=== PATIENT | female | born 1960 | race Caucasian/White ===

== ENCOUNTER 2017-03-22 07:29 | Emergency (ER) | payer BC, OTHER ==
[~2017-03-22] VITALS: Ht 167.6 cm; Wt 97.0 kg
[~2017-03-22 07:29] MED LIST: ALBU1AER INH; ATEN-100 PO; HYDR7.5T76 PO; LORA0.5T PO; NAPR-576 PO; OMEP20.62 PO; PRAV20 PO
[2017-03-22 07:32] VITALS: BP 186/94; PULSE 73; RESP 16; TEMP 98; O2SAT 97
[2017-03-22] MEDS ORDERED: methylPREDNISolone SOD SUCC 125 MG/2 ML VIAL IV PUSH ONE (07:45)
[2017-03-22] MEDS ORDERED: FAMOTIDINE 20 MG/2 ML VIAL IV PUSH SCH (07:45)
[2017-03-22] MEDS ORDERED: BENA25CA4 PO (07:46)
[2017-03-22] MEDS ORDERED: PRAV20TA2 PO (07:46)
[2017-03-22] MEDS ORDERED: ALBUAER3 INH (07:46)
[2017-03-22] MEDS ORDERED: HYDR7.5T76 PO (07:46)
[2017-03-22] MEDS ORDERED: OMEP20TA PO (07:46)
[2017-03-22] MEDS ORDERED: ASPI81CH7 CHEW (07:46)
[2017-03-22] MEDS ORDERED: ATEN25TA PO (07:46)
[2017-03-22 07:50] VITALS: O2SAT 97
[2017-03-22] MEDS: SODIUM CHLORIDE 0.9% FLUSH 10 ML FLUSH IVF PRN ×2 (07:57→08:38)
[2017-03-22 08:28] VITALS: BP 180/98; PULSE 77; RESP 18; O2SAT 97
[2017-03-22] MEDS ORDERED: diphenhydrAMINE HCL 50 MG/ML VIAL IV PUSH ONE (08:30)
--- NOTE | 2017-03-22 08:42 | PD ---
HPI Chief Complaint: Allergic/Adverse Reaction Time Seen by Provider: 07:38 Travel History International Travel<30 days: No Contact w/Intl Traveler<30days: No Traveled to known affect area: No History of Present Illness HPI Patient 57-year-old female who states that she thinks she was stung by some insect in her face yesterday. She states she was outside playing with her 5- year-old grandson and felt something hit her in her face. She stated over the next several hours she started swelling in her face. She states that she's never had a history of anaphylaxis in the past. She states happened to her one time before where she was bitten multiple times by ancillary her left hand or left hand swelling. She denies any shortness of breath wheezing bowel pain nausea vomiting diarrhea. Denies any fevers. Denies any traumatic injury to her face. She took some Benadryl last night and just made her sleepy. PFSH Past Medical History Asthma: Yes High Cholesterol: Yes GERD: Yes Hypertension: Yes Influenza Vaccination: No ?: Not Menopausal: Yes Past Surgical History Tonsillectomy: Yes Social History Alcohol Use: Yes (OCC) Tobacco Use: No Substance Use: No Allergies-Medications (Allergen,Severity, Reaction): Coded Allergies: Latex (Verified Allergy, Intermediate, Itching, 03/22/17) Reported Meds & Prescriptions Reported Meds & Active Scripts Active Prednisone 20 Mg Tab 60 Mg PO DAILY 5 Days Famotidine 20 Mg Tab 20 Mg PO BID Reported Benadryl Allergy (Diphenhydramine HCl) 25 Mg Cap 1 Cap PO ONCE Proair Hfa 8.5 GM Inh (Albuterol Sulfate) 90 Mcg/Act Aer 2 Puff INH Q6H PRN 108 mcg/actuation Pravastatin 20 Mg Tab 20 Mg PO HS Aspirin Children's (Aspirin) 81 Mg Chew 81 Mg CHEW DAILY Atenolol 25 Mg Tab 25 Mg PO DAILY Omeprazole 20 Mg Tab 20 Mg PO DAILY Hydrocodone-Ibuprofen 7.5-200 Mg Tab 1 Tab PO Q6H PRN Review of Systems Except as stated in HPI: all other systems reviewed are Neg Physical Exam Narrative GENERAL: Well-developed well-nourished distress SKIN: No rash no hives on her person. No lesion to her face. There is some mild soft tissue edema underneath both eyes spreading down into her maxillae. No bruising HEAD: Atraumatic. Normocephalic. EYES: Pupils equal and round. No scleral icterus. No injection or drainage. ENT: No nasal bleeding or discharge. Mucous membranes pink and moist. No oropharyngeal swelling, uvula is midline, no tongue swelling, airway is widely patent. No facial bone tenderness NECK: Trachea midline. No JVD. CARDIOVASCULAR: Regular rate and rhythm. No murmur appreciated. RESPIRATORY: No accessory muscle use. Clear to auscultation. Breath sounds equal bilaterally. No wheezing. Normal work of breathing. Speaks in full sentences. GASTROINTESTINAL: Abdomen soft, non-tender, nondistended. Hepatic and splenic margins not palpable. MUSCULOSKELETAL: No obvious deformities. No clubbing. No cyanosis. No edema. NEUROLOGICAL: Awake and alert. No obvious cranial nerve deficits. Motor grossly within normal limits. Normal speech. PSYCHIATRIC: Appropriate mood and affect; insight and judgment normal. Data Data Last Documented VS Vital Signs Date Time Temp Pulse Resp B/P Pulse Ox O2 Delivery O2 Flow Rate FiO2 03/22/17 09:45 78 18 178/88 99 03/22/17 08:28 Room Air 03/22/17 07:32 98.0 Orders Ecg Monitoring (03/22/17 07:44) Iv Access Insert/Monitor (03/22/17 07:44) Oximetry (03/22/17 07:44) Oxygen Administration (03/22/17 07:44) Sodium Chloride 0.9% Flush (Ns Flush) (03/22/17 07:45) Methylprednisolone So Succ Inj (Solumedr (03/22/17 07:45) Famotidine Inj (Pepcid Inj) (03/22/17 07:45) Diphenhydramine Inj (Benadryl Inj) (03/22/17 08:30) MDM Medical Decision Making Medical Screen Exam Complete: Yes Emergency Medical Condition: Yes Differential Diagnosis Facial edema, angioedema, anaphylaxis is excluded clinically, allergic reaction. Narrative Course Patient 49-year-old female roomed in emergency department for some mild facial edema, she was given Benadryl steroids and famotidine. Her edema was beginning to resolve in the ER. No respiratory symptoms, no upper airway symptoms. After an observation period of 2 hours in the emergency department she is improving like to go home. Discussed symptomatic management and discussed any airway involvement should prompt emergent return versus calling 911 and discussed symptoms that should prompt these actions. Discussed need for follow-up with her primary care physician by phone on Thursday. Diagnosis Primary Impression: Facial edema Additional Impression: Allergic reaction Med/Other Pt SpecificInfo: Prescription(s) given Scripts Prednisone 20 Mg Tab60 Mg PO DAILY 5 Days Ref 0 Prov:Gabriel Kat MD 03/22/17 Famotidine 20 Mg Tab20 Mg PO BID #60 TAB Ref 0 Prov:Gabriel Kat MD 03/22/17 Disposition: 01 DISCHARGE HOME Condition: Stable Gabriel Kat MD Mar 22, 2017 08:42
[2017-03-22] MEDS ORDERED: FAMO20TA2 PO (09:08)
[2017-03-22] MEDS ORDERED: PRED20 PO (09:08)
[2017-03-22 09:45] VITALS: BP 178/88
== END 2017-03-22 09:46 | disposition home or self-care (01) ==
LOC: PHED 07:29
DX: R60.0 Localized edema (principal); T78.40XA Allergy, unspecified, initial encounter; I10 Essential (primary) hypertension; E78.00 Pure hypercholesterolemia, unspecified; Z87.09 Personal history of other diseases of the respiratory system; Z87.19 Personal history of other diseases of the digestive system; X58.XXXA Exposure to other specified factors, initial encounter
CPT/HCPCS: 96374; 96375; 99284; J1200; J2930